=== PATIENT | male | born 1975 | race Caucasian/White ===

== ENCOUNTER 2019-12-11 10:42 | Emergency (ER) | payer SELFPAY ==
[2019-12-11 10:53] VITALS: BP 172/94; PULSE 88; RESP 20; TEMP 37.1; O2SAT 96
--- NOTE | 2019-12-11 11:34 | ED.URI ---
HPI - URI/Sore Throat General Chief Complaint: Upper Respiratory Infection Stated Complaint: cough/chest discomfort Time Seen by Provider: 12/11/19 11:15 Source: patient and RN notes reviewed Mode of arrival: ambulatory Limitations: no limitations History of Present Illness HPI Narrative: 44 year old male who presents to [facility] care with complaints of 2 day history of cough and congestion, some shortness of breath with exertion noted, denies any acute respiratory difficulty. Patient states that he usually gets this cough and congestion a few times a year and he gets better with some antibiotics and some steroids, reports history of past bronchitis and pneumonia. Patient states that his cough is productive of yellowish mucous, has some nasal drainage but denies any sinus pressure or pain, no sore throat or any ear pain, Patient has long history of tobacco abuse. MD elicited complaint: cough, rhinorrhea and nasal congestion Pertinent past history: pneumonia and other (bronchitis) Onset (ago): day(s) (2) Consistency: progressively worsening Severity: similar to previous episodes Description of mucous: yellow Able to tolerate fluids by mouth: Yes Exacerbating factors: exertion and deep breaths Relieving factors: nothing Associated symptoms: rhinorrhea, nasal congestion, cough and other (denies any dyspnea) Treatments prior to arrival: none Related Data Home Medications Medication Instructions Recorded Confirmed amlodipine 10 mg DAILY 11/04/19 12/11/19 hydrochlorothiazide 12.5 mg DAILY 11/04/19 12/11/19 metformin 500 mg DAILY 11/04/19 12/11/19 simvastatin 20 mg DAILY 11/04/19 12/11/19 Allergies Allergy/AdvReac Type Severity Reaction Status Date / Time No Known Allergies Allergy Verified 11/04/19 14:29 Review of Systems Review of Systems: Narrative: CONSTITUTIONAL: Denies fever, chills, or sweats. EYES: Denies visual changes, redness, or discharge. ENT: Positive rhinorrhea, congestion,no sore throat, or otalgia. CARDIOVASCULAR: Denies chest pain, palpitations, or edema. RESPIRATORY: positive cough or dyspnea. GASTROINTESTINAL: Denies abdominal pain, nausea, vomiting, or diarrhea. GENITOURINARY: Denies dysuria or hematuria. SKIN: Denies rash or itching. MUSCULOSKELETAL:history of back pain, joint pain, or myalgia. NEUROLOGIC: Denies headache, numbness, or weakness. PSYCHIATRIC: Denies anxiety or depression. All systems reviewed & are unremarkable except as noted in HPI and below PMFSH Past Medical History Medical History (Updated 12/14/19 @ 23:20 by Viky Valverde NP) Back pain Bronchitis Diabetes Fracture of left upper extremity History of dental problems Hypercholesterolemia Hypertension Peripheral neuropathy Pneumonia Social History Social History (Updated 12/14/19 @ 23:02 by Viky Valverde NP) Smoking packs per day: 1 Smoking cigarettes per day: 20.0 Years smoked: 15 Smoking pack-years: 15.00 Smoking status: Current every day smoker Tobacco type: cigarettes Substance use: former Substance use type: heroin and opiates Living arrangements: with family Gender identity (if verbalized by the patient): Male Comments At time of signature, agree with nursing past medical, social history. There is no relevant family history pertinent to the presenting complaint Exam Narrative: Exam Narrative: GENERAL: Well-appearing, obese, and in no acute distress. HEAD: Normocephalic, atraumatic. EYES: PERRLA and EOMI. ENT: Nares red with clear rhinorrhea no epistaxis. Mucous membranes moist.TM's normal with good light reflex, throat red with no lesions or exudates no tonsil enlargement, post nasal drainage noted NECK: Supple.no lymphadenopathy CHEST: Rare faint wheeze upper lobes on auscultation. No respiratory distress, productive cough SAO2 96% on room aiir HEART: Regular rate and rhythm. No murmur heard. Normal peripheral pulses. ABDOMEN: Soft, nontender, nondistended, normal active bowel sound
== END 2019-12-11 11:56 | disposition home or self-care (01) ==
PROVIDERS: Emergency Provider Registered Nurse
DX: J06.9 Acute upper respiratory infection, unspecified (principal); R05 Cough; F17.210 Nicotine dependence, cigarettes, uncomplicated; E78.00 Pure hypercholesterolemia, unspecified; I10 Essential (primary) hypertension; E11.42 Type 2 diabetes mellitus with diabetic polyneuropathy
CPT/HCPCS: 99213; G0463

== ENCOUNTER 2021-07-04 13:10 | Emergency (ER) | payer SELFPAY ==
[2021-07-04 13:16] VITALS: BP 130/64; PULSE 98; RESP 16; TEMP 36.3; O2SAT 96
--- NOTE | 2021-07-04 13:31 | ED.GENADULT ---
HPI - General Adult General Chief complaint: Nausea/Vomiting/Diarrhea Stated complaint: abdominal pain/fatigue/nausea Time Seen by Provider: 07/04/21 13:40 Source: patient and RN notes reviewed Mode of arrival: ambulatory Limitations: no limitations History of Present Illness HPI narrative: 45-year-old male presents concern for fever, fatigue. Reports he was diagnosed with a blood clot in April and has been taking Eliquis since that time. Reports since taking Eliquis he has been having decreased appetite, fatigue, dizziness. Reports he has followed up with his primary doctor, pulmonology regarding this and was told it was normal side effects. Reports he has felt slightly more fatigued since yesterday, had a fever of 101. He denies any abdominal pain, vomiting, diarrhea, upper respiratory symptoms such as rhinorrhea, nasal congestion, sore throat, headache, cough, shortness of breath. MD complaint: Fever Related Data Home Medications Medication Instructions Recorded Confirmed amlodipine 10 mg DAILY 11/04/19 12/11/19 metformin 500 mg DAILY 11/04/19 12/11/19 simvastatin 20 mg DAILY 11/04/19 12/11/19 apixaban [Eliquis] 5 mg PO BID 07/04/21 07/04/21 hydrochlorothiazide 25 mg PO DAILY 07/04/21 07/04/21 Allergies Allergy/AdvReac Type Severity Reaction Status Date / Time No Known Allergies Allergy Verified 07/04/21 13:34 Review of Systems Review of Systems: CONSTITUTIONAL: Reports malaise, fatigue, 1 episode of fever, sweats EYES: Denies visual changes, redness, or discharge. ENT: Denies rhinorrhea, congestion, sinus pain, otalgia or sore throat. CARDIOVASCULAR: Denies chest pain, palpitations, or edema. RESPIRATORY: Denies cough or dyspnea. GASTROINTESTINAL: Denies abdominal pain, nausea, vomiting, diarrhea, bloody, or mucous stools. Reports poor appetite GENITOURINARY: Denies dysuria or hematuria. SKIN: Denies rash or itching. MUSCULOSKELETAL: Denies back pain, joint pain, or myalgia. NEUROLOGIC: Denies numbness, weakness, or headache. All systems reviewed & are unremarkable except as noted in HPI and below PMFSH Past Medical History Medical History (Updated 07/04/21 @ 13:53 by Bev Amador NP) Back pain Bronchitis Diabetes Fracture of left upper extremity History of dental problems Hypercholesterolemia Hypertension Peripheral neuropathy Pneumonia Social History Social History (Updated 12/14/19 @ 23:02 by Viky Valverde NP) Smoking packs per day: 1 Smoking cigarettes per day: 20.0 Years smoked: 15 Smoking pack-years: 15.00 Smoking status: Current every day smoker Tobacco type: cigarettes Substance use: former Substance use type: heroin and opiates Gender identity (if verbalized by the patient): Male Comments At time of signature, agree with nursing past medical, surgical, social and family history. There is no relevant family history pertinent to the presenting complaint Exam Narrative: GENERAL: Well-appearing, well-nourished, and in no acute distress. HEAD: Normocephalic, atraumatic. EYES: PERRLA, sclera clear ENT: Nares clear. Mucous membranes moist. TM pearly funes with sharp light reflex bilaterally; no tragal tenderness. Oropharynx without erythema or lesions. Tonsils not enlarged and without exudate. NECK: Supple. No lymphadenopathy. CHEST: No respiratory distress. Clear to auscultation. No bony deformities, no asymmetry. Speaks in full sentences. HEART: Regular rate and rhythm. No murmur heard. Normal peripheral pulses. ABDOMEN: Soft, nontender, nondistended, normal active bowel sounds, no palpable masses. EXTREMITIES: Grossly normal range of motion. No edema. Grossly normal strength and sensation. SKIN: Warm, dry, no visible rash. NEURO: Alert and oriented x3. PSYCH: Normal mood and affect Course Course Emergency Course: Patient is aware of diagnosis, understands and agrees to treatment plan. Anticipatory guidance given. Patient agrees to follow-up as directed and i
== END 2021-07-04 14:05 | disposition home or self-care (01) ==
PROVIDERS: Emergency Provider Nurse Practitioner; PCP Emergency Medicine
DX: R50.9 Fever, unspecified (principal); R11.2 Nausea with vomiting, unspecified; R42 Dizziness and giddiness; R53.83 Other fatigue; E11.9 Type 2 diabetes mellitus without complications; I10 Essential (primary) hypertension; Z79.84 Long term (current) use of oral hypoglycemic drugs; Z79.01 Long term (current) use of anticoagulants; F17.210 Nicotine dependence, cigarettes, uncomplicated
CPT/HCPCS: 99211; G0463

== ENCOUNTER 2021-07-08 10:01 | Emergency (ER) | payer SELFPAY ==
--- NOTE | ~2021-07-08 | CT_ITS ---
EXAMINATION: CT abdomen pelvis w con DATE: 07/08/2021 14:59 INDICATION: Generalized abdominal pain. TECHNIQUE: Computed tomography (CT) of the abdomen and pelvis was performed with 100 mL Omnipaque 350 intravenous contrast. Automated exposure control and iterative reconstruction technique were employe d. The dose-length product was 1443.61 mGy-cm. COMPARISON: None. FINDINGS: The visualized portions of the lung bases demonstrate mild atelectasis. There are greater t ferris 30 scattered pulmonary nodules measuring up to 9 mm. No pleural effusion. The heart size is ashu l. No pericardial effusion. There is mediastinal and bilateral hilar lymphadenopathy. There are bilat eral pulmonary emboli. There are innumerable masses in the liver, many of which are confluent. There are gallstones in the gallbladder, which is normal in size. The spleen, pancreas, and right adrenal g land are normal. There is a 2.3 cm mass in left adrenal gland. The kidneys are normal. The appendix i s normal. There are no dilated loops of bowel. There are multiple masses in the peritoneum, consisten t with carcinomatosis. There is a small volume of ascites. There is prominent fat in the inguinal can als bilaterally that may be hernias. There is bilateral external iliac lymphadenopathy. There is left para-aortic, gastrosplenic, gastrohepatic, and periportal lymphadenopathy. There is moderate thoraci c and lumbar spondylosis. IMPRESSION: 1. Bilateral acute pulmonary emboli. I called this result to Dr. James. 2. Pulmonary nodules, liver masses, peritoneal masses, and abdominal and pelvic lymphadenopathy, cons istent with metastatic disease. Ultrasound-guided core needle biopsy of a liver mass is recommended. 3. Left adrenal mass, which may be an adenoma or metastatic disease. 4. Small volume of ascites. Reviewed, dictated and finalized at location A. IMPRESSION: 1. Bilateral acute pulmonary emboli. I called this result to Dr. James. 2. Pulmonary nodules, liver masses, peritoneal masses, and abdominal and pelvic lymphadenopathy, consistent with metastatic disease. Ultrasound-guided core ne edle biopsy of a liver mass is recommended. 3. Left adrenal mass, which may be an adenoma or metastatic disease. 4. Small volume of ascites.
[2021-07-08 10:16] VITALS: BP 141/78; PULSE 96; RESP 18; TEMP 36.6; O2SAT 96
[2021-07-08 10:44] LABS: Basophils Absolute Auto 0.1 K/mm3 (0.0-0.1); Basophils Percent Auto 0.5 % (0.2-1.2); Eosinophils Percent Auto 0.3 % (0-4.4); Hematocrit 41.5 % (42.0-52.0); Hemoglobin 13.7 g/dL (14.0-18.0); Immature Granulocyte Absolute 0.08 K/mm3 (0.00-0.031); Immature Granulocyte Percent A 0.5 % (0-0.5); Lymphocytes Absolute Auto 0.94 K/mm3 (0.9-3.2); Lymphocytes Percent Auto 6.3 % (18.3-44.2); Mean Corpuscular Hemoglobin 29.3 pg (26-34); Mean Corpuscular Volume 88.7 fl (80-100); Mean Platelet Volume 10.3 fl (7.4-10.4); Monocytes Absolute Auto 0.7 K/mm3 (0.1-0.6); Monocytes Percent Auto 4.6 % (2.6-8.5); Neutrophils Absolute Auto 13.1 K/mm3 (1.3-6.7); Neutrophils Percent Auto 87.8 % (45.5-73.1); Platelet Count Result 206 k/mm3 (150-375); Red Blood Count 4.68 M/mm3 (4.6-6.20); Red Cell Distribution Width 14.6 % (11.5-14.5); White Blood Count 14.9 K/mm3 (4.5-10.0)
[2021-07-08 10:59] LABS: Alanine Aminotransferase 86 U/L (4-50); Albumin Level 3.5 g/dL (3.5-5.1); Alkaline Phosphatase 474 U/L (38-126); Anion Gap 6 mmol/L (8-16); Aspartate Amino Transferase 159 U/L (17-59); Bilirubin,Total 0.7 mg/dL (0.2-1.3); Blood Urea Nitrogen 20 mg/dL (9-20); Carbon Dioxide 32 mmol/L (22-30); Chloride 97 mmol/L (98-107); Estimated CRCL calculation 122 ml/min; Estimated Glomerular Filt Rate > 60; Glucose 247 mg/dL (65-110); Lipase 248 U/L (23-300); Potassium 4.6 mmol/L (3.4-5.0); Sodium 135 mmol/L (137-145)
[2021-07-08 11:17] LABS: Mucus Urine Rare /lpf; RBC Urine 0-2 /hpf (0-2); Squamous Epithelial Cell Urine Rare /hpf (Few); WBC Urine 0-3 /hpf
[2021-07-08 11:19] LABS: Add Urine Microscopic? YES; Appearance Urine Clear (Clear); Bilirubin Urine Negative (Negative); Blood Urine Negative (Negative); Color Urine Yellow (Yellow); Glucose Urine UA Negative (Negative); Ketones Urine Negative (Negative); Leukocyte Esterase Ur Negative LEU/UL (Negative); Nitrate Urine Negative (Negative); Protein Urine 1+ mg/dL (Negative); Specific Grav Ur 1.024 (1.001-1.035)
--- NOTE | 2021-07-08 14:02 | ED.GENADULT ---
HPI - General Adult General Chief complaint: Abdominal Pain Stated complaint: abd pain, no energy Time Seen by Provider: 07/08/21 13:31 Source: patient History of Present Illness HPI narrative: Patient is a 45 y/o male complaining of moderate weakness, malaise for last 2 months. He states that he was diagnosed with DVT and PE 2 month ago while he was on vacation in [place]. He was started on Eliquis. He took himself off Eliquis 4 days ago because he thought maybe it's making him feel weak. This did not change his symptoms. He also has some generalized abdominal pain. He has no vomiting or diarrhea. Related Data Home Medications Medication Instructions Recorded Confirmed amlodipine 10 mg DAILY 11/04/19 07/04/21 metformin 500 mg DAILY 11/04/19 07/04/21 simvastatin 20 mg DAILY 11/04/19 07/04/21 apixaban [Eliquis] 5 mg PO BID 07/04/21 07/04/21 hydrochlorothiazide 25 mg PO DAILY 07/04/21 07/04/21 Allergies Allergy/AdvReac Type Severity Reaction Status Date / Time No Known Allergies Allergy Verified 07/04/21 13:34 Review of Systems Constitutional: Constitutional: Denies chills, Reports fatigue, Denies fever(s), Denies headache(s), Reports lethargy, Reports malaise and Denies weakness Eyes: Eyes: Denies blurry vision ENT: Denies headache(s) and Denies neck pain Cardiovascular: Cardiovascular: Denies chest pain and Denies dyspnea Respiratory: Respiratory: Denies cough and Denies dyspnea Gastrointestinal: Gastrointestinal: Reports abdominal pain, Denies diarrhea, Denies nausea and Denies vomiting Genitourinary: Genitourinary: Denies hematuria and Denies dysuria Musculoskeletal: Musculoskeletal: Denies back pain and Denies neck pain Neurologic: Denies headache(s) and Reports weakness PMF Past Medical History Medical History Back pain Bronchitis Diabetes Fracture of left upper extremity History of dental problems Hypercholesterolemia Hypertension Peripheral neuropathy Pneumonia Social History Social History Smoking packs per day: 1 Smoking cigarettes per day: 20.0 Years smoked: 15 Smoking pack-years: 15.00 Smoking status: Current every day smoker Tobacco type: cigarettes Substance use: former Substance use type: heroin and opiates Gender identity (if verbalized by the patient): Male Exam Const: General: no acute distress and well developed Orientation/consciousness: oriented to person, oriented to place, oriented to time and patient oriented x3 HENMT: Head: normocephalic Ears: external ears normal General nose exam: Normal external nose present Eyes: General: appearance normal, both eyes and all related structures Conjunctivae: conjunctivae normal Neck: Neck: normal visual inspection and full ROM Chest: Chest palpation & inspection: normal inspection of the chest and no tenderness Resp: Effort & Inspection: normal respiratory effort Auscultation: clear to auscultation bilaterally Cardio: Rate: regular rate Rhythm: regular rhythm GI: GI Palp: No abdominal tenderness and Yes Soft to palpation Skin: General skin exam: normal color and turgor normal Neuro: General: oriented to person, oriented to place, oriented to time and patient oriented x3 Cognition (Neuro): normal cognition Extrem: General: normal to inspection, full ROM and no pedal edema Psych: Appearance: grossly normal Mental Status: mental status grossly normal Affect: normal affect Course Reevaluation(s) Reevaluation #1: I discussed with patient about lab and CT finding. I informed patient that CT finds are likely suspicious for cancer. I advised patient to be admitted for observation and further work up. However, patient refuses to be admitted. He wants to go home and follow up with his PCP. I instructed him to resume taking Eliquis. Date: 07/08/21 Time: 16:04 Consultations Consultation #1: Justyn byrne
[2021-07-08 14:23] LABS: Creatine Kinase 186 U/L (55-170)
[2021-07-08 15:09] LABS: Hepatitis B Surface Antigen Negative (Negative)
[2021-07-08 15:15] LABS: HAV RESULT Negative (Negative); Hepatitis B Core IgM Result Negative (Negative)
[2021-07-08 15:20] VITALS: BP 130/76; PULSE 91; RESP 12; O2SAT 95
[2021-07-08 15:26] LABS: Hepatitis C Virus Antibody Negative (Negative)
[2021-07-08 16:38] VITALS: BP 120/78; PULSE 97; RESP 14; O2SAT 95
== END 2021-07-08 16:38 | disposition left against medical advice (07) ==
PROVIDERS: Emergency Medicine; Emergency Provider Emergency Medicine; PCP Emergency Medicine
DX: I26.99 Other pulmonary embolism without acute cor pulmonale (principal); R16.0 Hepatomegaly, not elsewhere classified; F17.210 Nicotine dependence, cigarettes, uncomplicated; E11.9 Type 2 diabetes mellitus without complications; E78.5 Hyperlipidemia, unspecified; I10 Essential (primary) hypertension; Z79.84 Long term (current) use of oral hypoglycemic drugs
CPT/HCPCS: 36415; 74177; 80053; 80074; 81001; 82550; 83690; 85025; 99284; Q9967